=== PATIENT | male | born 1955 | race Caucasian/White ===

== ENCOUNTER 2024-01-22 08:24 | Outpatient (REF) | payer MEDICARE, SELFPAY ==
--- NOTE | ~2024-01-22 | CT_ITS ---
EXAMINATION: CT ABDOMEN AND PELVIS WITH CONTRAST CLINICAL INFORMATION: Prostate cancer. COMPARISON: None available. TECHNIQUE: Multidetector volumetric images were obtained from the superior aspect of the liver through the pubic symphysis following administration 85 mL of Omnipaque 350 intravenous contrast. Sagittal and coronal reformatted images were obtained on the technologist's workstation. Oral contrast: No This CT examination was performed using dose optimization techniques as appropriate, variously including the following: *Automated exposure control *Adjustment of mA and/or kV according to patient size (this includes techniques or standardized protocols for targeted exams where dose is matched to indication/reason for exam; i.e. extremities or head) *Use of iterative reconstruction technique DLP: 315 mGy-cm FINDINGS: Limited by patient's breathing motion artifact. LIVER, GALLBLADDER, AND BILIARY TREE: Liver measures 16 cm. Decreased enhancement pattern. No focal mass. Portal vein and hepatic veins are patent. No intrahepatic biliary ductal dilatation. Gallbladder is contracted. No pericholecystic fluid collection or gallbladder wall thickening. Common bile duct measures 3 mm. PANCREAS: No focal pancreatic mass. No peripancreatic fluid collections. No main pancreatic ductal dilatation. SPLEEN: Measures 10 cm. No focal mass. ADRENAL GLANDS: No nodular lesions. KIDNEYS AND URETERS: No renal mass. No hydronephrosis. Normal renal cortical enhancement. BLADDER: Fluid-filled. GASTROINTESTINAL TRACT: Numerous diverticula throughout the left hemicolon. Abundant stool. No intestinal obstruction pattern. No pneumoperitoneum. No ascites. No pneumatosis intestinalis. Status post appendectomy. ABDOMINAL WALL: Small fat-containing umbilical hernia. LYMPH NODES: No lymphadenopathy, mesenteric or retroperitoneal. VASCULAR: Throughout the abdominal aorta wall and iliac arteries without aneurysm or dissection. PELVIC VISCERA: Absent prostate gland. Vascular clips in the inguinal scrotal region suggesting vasectomy, bilaterally. . OSSEOUS STRUCTURES: No lytic or blastic lesions. Multilevel thoracolumbar spondylosis without acute fracture or listhesis. Degenerative changes in the left hip. Sclerosis and marginal osteophyte formation in the sacroiliac joints. CT/CT abdomen pelvis w IV con IMPRESSION: No gross mass or metastatic disease. Atherosclerosis disease, abdominal aorta and iliac arteries. Small fat-containing umbilical hernia.. Fleischner guidelines were followed. Electronically signed by: Keith Dick MD 02/04/2024 03:28 PM EDT
[2024-01-22] MEDS: iohexoL 350 MG/ML 100 ML INFUS..BTL IV (08:58)
[2024-01-25 09:09] LABS: Creatinine POC 0.9 mg/dL (0.5-1.4); GFR POC > 60
== END 2024-01-22 08:25 | disposition home or self-care (01) ==
LOC: HO.CT 08:24
PROVIDERS: PCP Internal Medicine; Visit Provider Internal Medicine
DX: C61 Malignant neoplasm of prostate (principal)
CPT/HCPCS: 74177; 82565; Q9967

== ENCOUNTER → 2024-01-22 08:27 | Outpatient (BNV) | payer MEDICARE, SELFPAY | PROVIDERS: PCP Internal Medicine; Visit Provider Radiology Diagnostic Radiology | DX: C61 Malignant neoplasm of prostate (principal) | CPT/HCPCS: 74177 ==